=== PATIENT | female | born 1990 | race Caucasian/White ===

== ENCOUNTER 2021-06-21 12:41 | Outpatient (CLI) | payer MEDICAID ==
[~2021-06-21 12:41] MED LIST: LIDOCAINE 1%, 10ML ONE; ROPivacaine/PF 0.2%, 10 ML ONE
[2021-06-21] MEDS ORDERED: GADOTERATE 5 MMOL/10 ML VIAL ONE (13:00)
[2021-06-21] MEDS ORDERED: OMNIPAQUE 300 MG/ML, 10ML VIAL ONE (13:00)
== END 2021-06-21 23:59 | disposition home or self-care (01) ==
LOC: RAD 12:41
PROVIDERS: ATTEND Family Medicine Sports Medicine
DX: S73.192A Other sprain of left hip, initial encounter (principal); S72.145A Nondisplaced intertrochanteric fracture of left femur, initial encounter for closed fracture; F32.9 Major depressive disorder, single episode, unspecified; G43.909 Migraine, unspecified, not intractable, without status migrainosus; Z79.899 Other long term (current) drug therapy; Z87.891 Personal history of nicotine dependence; X50.1XXA Overexertion from prolonged static or awkward postures, initial encounter; Y93.89 Activity, other specified; Y92.810 Car as the place of occurrence of the external cause; Y99.8 Other external cause status
CPT/HCPCS: 27093; 73525; 73722; A9575; J3490; Q9967; J2795